=== PATIENT | male | born 1945 | race Caucasian/White ===

== ENCOUNTER 2016-10-02 15:59 | Observation (INO) | payer OTHER ==
--- NOTE | ~2016-10-02 | HP ---
History And Physical [id number] [place]. [address] NAME: SABINA JOHNSON : 47 STATUS : ADM Reshma PAT#: [id number] AGE: 71 ADM/REG DATE : 10/02/16 MR#: [id number] REPORT SERV DATE: 10/03/16 DICTATED BY: DATE: REPORT STATUS : Draft TRANSCRIBED BY: MODL DATE: 10/03/16 DATE OF ADMISSION: 10/02/2016 PRIMARY CARE PROVIDER: He goes to the [facility] and sees Dr. Adarsh Lawler. CHIEF COMPLAINT: Intermittent left arm pain. HISTORY OF PRESENT ILLNESS: This is a very pleasant 71-year-old white male without any history of coronary artery disease, who reports to have intermittent left arm pain for the last five to six months. He also reports to have heartburn at times recurrence with his left arm pain, but that he reports is relieved with Pepto-Bismol. He reports that his left arm pain had worsened yesterday and he started feeling flushed and very fatigued. Therefore, he went to his PCP's office, who directed him to our ER. 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 The patient reports during his event above, he did not have any chest pain, shortness of breath, nausea, vomiting, diaphoresis, orthopnea, or any palpitations. His left arm pain is resolved currently and he denies any complaints. The patient denies any personal history of myocardial infarction, stroke, DVT, or pulmonary embolus. The patient denies any recent fever or chills. No palpitations. No syncopal episodes. Denies PND or orthopnea. 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 PAST SURGICAL HISTORY: Cataract surgery and appendectomy. 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 He is with one child, whom he cares for due to the child being handicapped. He is a current smoker and has smoked one and half packs per day for fifty years. He denies any alcohol use. He denies any illicit drug use. FAMILY HISTORY: He has a mother with breast cancer and a father who had congestive heart failure. REVIEW OF SYSTEMS: A 14-point review of systems was performed significant for HPI, no other contributory diagnoses identified. ALLERGIES: PENTAZOCINE FROM [place], REACTION IS SEVERE OPIATE WITHDRAWAL. NALBUPHINE FROM [place], REACTION IS SEVERE OPIATE WITHDRAWAL. BUPRENORPHINE FROM BUPRENEX, REACTION IS SEVERE OPIATE WITHDRAWAL. BUTORPHANOL FROM [place], REACTION IS SEVERE OPIATE WITHDRAWAL. HOME MEDICATIONS: 1. Artificial tear solution one drop ophthalmically daily p.r.n. 2. Aspirin 325 p.o. every morning. 3. Lipitor 20 p.o. at bedtime. History And Physical [address] [address] NAME: SABINA JOHNSON : 47 STATUS : ADM Reshma PAT#: [id number] AGE: 71 ADM/REG DATE : 10/02/16 MR#: [id number] REPORT SERV DATE: 10/03/16 DICTATED BY: DATE: REPORT STATUS : Draft TRANSCRIBED BY: MODL DATE: 10/03/16 4. Colace 100 p.o. every morning. 5. Lasix 20 p.o. every morning. 6. Methadone 45 mg p.o. every morning. 7. Multivitamin one tablet p.o. every morning. 8. Potassium 20 mEq p.o. every morning. 9. Triamcinolone 0.1% cream one application topically twice a day p.r.n. for his lower extremity rash. PHYSICAL EXAMINATION: VITAL SIGNS: Blood pressure 141/70, heart rate 98, temperature 98.1, respirations 18, O2 saturation 94% on room air. GENERAL: Cooperative, in no apparent distress. HEENT: Head normocephalic, anicteric. Normal EOM. PERRLA. No xanthelasma. Nares patent. Moist mucous membranes. NECK: Trachea midline. No thyromegaly, JVD or bruits. RESPIRATORY: Clear to auscultation bilaterally anterior and posterior. Respirations even and unlabored. No rhonchi or crackles. Faint expiratory wheezes, otherwise clear throughout . CARDIOVASCULAR: Regular rate and rhythm. No murmur, rub or gallop appreciated. No chest wall tenderness to palpation. ABDOMEN: Soft, nontender, nondistended, normal bowel sounds auscultated throughout. No masses or organomegaly. EXTREMITIES: No peripheral edema. DP/PT and radial pulses palpable bilaterally. No clubbing or cyanosis. The patient has full range of motion to his left arm and shoulder, no pain with movement or touch. SKIN: Warm, dry and intact. Normal turgor. No pallor or cyanosis. NEURO/PSYCH: Alert, oriented x3 with no acute distress. Affect appropriate to current situation. LABORATORY DATA: Troponin x3 less than 0.02. Sodium 142, potassium 3.9, BUN 7, creatinine 0.90, GFR 100, glucose 121, calcium 9.2, magnesium 2.2. White blood cells 8.1, hemoglobin 14.5, hematocrit 42.2, platelets 224. INR 1.0. Chest x-ray shows lungs clear. Heart size normal. EKG done on 10/02/2016 at 2220 hours shows sinus rhythm, 79, no ischemia. Second EKG shows sinus tach, rate 113, no ischemia. Telemetry shows sinus rhythm, no events. ASSESSMENT AND PLAN: 1. Left arm pain. Left arm pain is resolved. He has full range of motion on physical examination. No pain on palpation. Troponins x3 have been negative. He denies any chest pain or pressure. We will continue to keep the patient n.p.o. The patient has been observed in the CPOU to rule out myocardial infarction with serial enzymes and serial EKGs. We will plan an MPI today. If the MPI is low risk or no ischemia, RN may discharge the patient to home. The patient will be asked to follow up with the PCP in one to two weeks with all the studies being sent to the office. If anything suggestive of ischemia, Cardiology referral will be initiated. Also if MPI shows low risk or no History And Physical [address] [address] NAME: SABINA JOHNSON : 47 STATUS : ADM Reshma PAT#: [id number] AGE: 71 ADM/REG DATE : 10/02/16 MR#: [id number] REPORT SERV DATE: 10/03/16 DICTATED BY: DATE: REPORT STATUS : Draft TRANSCRIBED BY: MODL DATE: 10/03/16 ischemia, we will defer the left arm pain to PCP. 2. Hyperlipidemia. We will continue the patient's statin. 3. Tobacco abuse. He is currently still smoking. We consulted him on smoking cessation for cardiovascular well-being. 4. Chronic back pain. He is on methadone. [facility] looks like. We will request he follow up with his [facility]. EKS/MODL Andrew Davis APN / [id number] CC: Brittney Fuller, MSN, ADVERTISING PHOTOGRAPHER-BC
[~2016-10-02 15:59] MED LIST: KDUR20 PO; L20 PO; LIPITOR20 PO; MSCONTIN PO; PERCOCET1 TA4 PO; STOOL SOFTENER; [UNRECOGNIZED DRUG - OTHER]
[2016-10-02 16:27] LABS: BASOPHILS 0.4 %; BASOPHILS ABSOLUTE 0.03 10/3/uL (0.0-0.16); EOSINOPHILS 1.4 %; EOSINOPHILS ABSOLUTE 0.11 10/3/uL (0.0-0.53); ER CBC TAT 0 Hrs 07 Mins; HEMATOCRIT 42.2 % (40.0-51.0); HEMOGLOBIN 14.5 g/dL (13.6-17.8); IMMATURE GRANULOCYTES 0.4 %; IMMATURE GRANULOCYTES ABSOLUTE 0.03 10/3/uL (0.0-0.11); LYMPHOCYTES 16.6 %; LYMPHOCYTES ABSOLUTE 1.34 10/3/uL (0.67-4.30); MEAN CORPUS HGB CONC 34.4 g/dL (32.0-36.0); MEAN CORPUSCULAR HEMOGLOB 31.2 pg (26.0-34.0); MEAN CORPUSCULAR VOLUME 90.8 fL (80-100); MEAN PLATELET VOLUME 9.9 fL (9.2-13.0); MONOCYTES 7.9 %; MONOCYTES ABSOLUTE 0.64 10/3/uL (0.21-1.20); NEUTROPHILS 73.3 %; NEUTROPHILS ABSOLUTE 5.92 10/3/uL (2.02-8.40); PLATELET COUNT 224 10/3/uL (150-400); RBC DISTRIBUTION WIDTH 14.2 % (12.0-16.0); RED CELL COUNT 4.65 10/6/uL (4.7-6.1); WHITE BLOOD CELLS 8.1 10/3/uL (4.5-10.5)
[2016-10-02 16:28] LABS: MANUAL DIFF NO %
[2016-10-02 16:34] LABS: PARTIAL THROMBO TIME 23.3 SEC (22.5-37.2)
[2016-10-02 16:35] LABS: PROTIME (NOT ORD) 12.9 SEC (12.0-14.5)
[2016-10-02 16:47] LABS: BUN (BLOOD UREA NITROGEN) 7 MG/DL (6-23); CALCIUM, SERUM 9.2 MG/DL (8.5-10.4); CHEST PAIN PROFILE TAT 0 Hrs 27 Mins; CHLORIDE, SERUM 109 MMOL/L (96-112); CO2 (CARBON DIOXIDE) 28 MMOL/L (24-34); GFR AFRICAN AMERICAN 100 ML/MIN (>=60); GFR NON AFRICAN AMERICAN 86 ML/MIN (>=60); POTASSIUM, SERUM 3.9 MMOL/L (3.5-5.3); SODIUM, SERUM 142 MMOL/L (135-148); TROPONIN I <0.02 NG/ML (<0.05)
[2016-10-02 16:48] LABS: GLUCOSE, SERUM 121 MG/DL (60-99)
[2016-10-02] MEDS ORDERED: METHADONE10 MG/5 ML PO (19:35)
[2016-10-02] MEDS ORDERED: TEARS PURE OPH (19:38)
[2016-10-02] MEDS ORDERED: MULTIVIT/MIN PO (19:38)
[2016-10-02] MEDS ORDERED: LIPITOR20 PO (19:38)
[2016-10-02] MEDS ORDERED: DSS PO (19:38)
[2016-10-02] MEDS ORDERED: KDUR20 PO (19:39)
[2016-10-02] MEDS ORDERED: L20 PO (19:39)
[2016-10-02] MEDS ORDERED: ASABAYER PO (19:40)
[2016-10-02] MEDS ORDERED: TRIAMCINOLONE C80 GM TOP (19:40)
== END 2016-10-03 15:07 | disposition home or self-care (01) ==
LOC: ER 15:59 → CDU1 19:48
PROVIDERS: Hospitalist
DX: M79.602 Pain in left arm (principal); E78.5 Hyperlipidemia, unspecified; G89.29 Other chronic pain; M54.9 Dorsalgia, unspecified; F17.210 Nicotine dependence, cigarettes, uncomplicated; Z88.1 Allergy status to other antibiotic agents; Z90.49 Acquired absence of other specified parts of digestive tract; Z88.4 Allergy status to anesthetic agent; Z88.8 Allergy status to other drugs, medicaments and biological substances
CPT/HCPCS: 71020; 78452; 80048; 83735; 84484; 85025; 85610; 85730; 93005; 93017; 99285; A9270-GY; A9502; G0378; J2785